=== PATIENT | male | born 1940 | race Caucasian/White ===

== ENCOUNTER 2021-11-12 14:35 | Inpatient (IN) | payer MEDICARE ==
[2021-11-12] MEDS ORDERED: Ondansetron ODT 4 MG TAB PO PRN (17:22)
[2021-11-12] MEDS ORDERED: Dextrose 50% Abboject 50 ML SYRINGE SLOW IVP PRN (17:22)
[2021-11-12] MEDS ORDERED: Acetaminophen 325 MG TAB PO PRN (17:22)
[2021-11-12] MEDS ORDERED: Albuterol Sulfate 2.5 mg/3 ml Neb NEB PRN (17:37)
[2021-11-12] MEDS: Acetaminophen/Codeine 30-300mg Tablet PO SCH (18:04)
[2021-11-12] MEDS: HumaLOG 300 UNITS/3 ML VIAL SC PRN ×2 (18:05→20:37)
[2021-11-12] MEDS: Famotidine 20 MG TAB PO SCH (20:38)
[2021-11-12] MEDS: Aspirin 81 mg Enteric Coated Tablet PO SCH (20:38)
[2021-11-12] MEDS: Metoprolol Tartrate 25 MG TAB PO SCH (20:38)
[2021-11-12] MEDS: Senokot S 8.6-50 MG TAB PO SCH (20:38)
[2021-11-12] MEDS ORDERED: Atorvastatin Calcium 10 MG TAB PO SCH (21:00)
[2021-11-13] MEDS: Acetaminophen/Codeine 30-300mg Tablet PO SCH ×4 (00:32→17:54)
[2021-11-13] MEDS: Mometasone/Formoterol 200/5 60 PUFF INH SCH (05:28)
[2021-11-13] MEDS: HumaLOG 300 UNITS/3 ML VIAL SC PRN ×4 (05:30→20:56)
[2021-11-13 06:15] LABS: #Eosinphils 0.1 thou/uL (0.0-0.7); #Lymphocytes 1.7 thou/uL (1.20-3.40); #Monocytes 0.7 thou/uL (0.11-0.59); #Neutrophils 3.9 thou/uL (1.40-6.50); %Basophils 0.8 % (0.0-1.0); %Eosinophils 1.1 % (0.0-10.0); %Lymphocytes 26.1 % (21.0-51.0); %Monocytes 10.7 % (0.0-10.0); %Neutrophils 61.3 % (42.0-75.0); Mean Corpuscular HGB CONC 31.1 g/dL (32.0-36.0); Mean Corpuscular Hemoglobin 30.4 pg (27.0-31.0); Mean Corpuscular Volume 97.7 fL (78.0-98.0); Mean Platelet Volume 8.6 fL (7.4-10.4); Platelet Count 143 thou/uL (130-400); RBC Distribution Width 13.3 % (11.5-14.5); White Blood Cell (WBC) Count 6.3 thou/uL (4.8-10.8)
[2021-11-13 06:25] LABS: ALT (SGPT) 12 U/L (8-55); AST (SGOT) 20 U/L (5-34); Albumin 3.1 g/dL (3.4-4.8); Alkaline Phosphatase 65 U/L (40-110); Anion Gap 16 mmol/L (10-20); BUN (Urea Nitrogen) 46 mg/dL (8.4-25.7); Bilirubin, Total 0.6 mg/dL (0.2-1.2); Calc. Creatinine Clearance 45 mL/min (70-130); Calcium 8.8 mg/dL (7.8-10.44); Carbon Dioxide 23 mmol/L (23-31); Chloride 106 mmol/L (98-107); Glucose 222 mg/dL (83-110); Potassium 4.7 mmol/L (3.5-5.1); Protein, Total 6.1 g/dL (5.8-8.1); Sodium 140 mmol/L (136-145)
[2021-11-13] MEDS: Aspirin 81 mg Enteric Coated Tablet PO SCH ×2 (08:42→20:56)
[2021-11-13] MEDS: Metoprolol Tartrate 25 MG TAB PO SCH ×2 (08:42→20:56)
[2021-11-13] MEDS: Atorvastatin Calcium 10 MG TAB PO SCH (08:43)
[2021-11-13] MEDS: Polyethylene Glycol 3350 17 GM Packet PO SCH (08:43)
[2021-11-13] MEDS: Tamsulosin HCl 0.4 MG CAP PO SCH (08:43)
[2021-11-13] MEDS: Lisinopril 5 MG TAB PO SCH (08:44)
[2021-11-13] MEDS: Finasteride 5 MG TAB PO SCH (08:44)
[2021-11-13] MEDS: Lantus 1000 UNITS/10 ML VIAL SC SCH (08:45)
[2021-11-13] MEDS: Senokot S 8.6-50 MG TAB PO SCH ×2 (08:47→20:56)
[2021-11-13] MEDS: Furosemide 40 MG TAB PO SCH (08:47)
[2021-11-13] MEDS: metFORMIN 500 MG TAB PO SCH (08:51)
[2021-11-13] MEDS ORDERED: metFORMIN 500 MG TAB PO SCH (09:00)
[2021-11-13] MEDS ORDERED: [UNRECOGNIZED DRUG - OTHER] SQ SCH (09:00)
[2021-11-13] MEDS: Famotidine 20 MG TAB PO SCH (20:56)
[2021-11-14] MEDS: Acetaminophen/Codeine 30-300mg Tablet PO SCH ×4 (00:04→17:04)
[2021-11-14] MEDS: HumaLOG 300 UNITS/3 ML VIAL SC PRN ×3 (05:49→17:05)
[2021-11-14] MEDS: Mometasone/Formoterol 200/5 60 PUFF INH SCH ×2 (05:51→05:56)
[2021-11-14] MEDS: Tamsulosin HCl 0.4 MG CAP PO SCH (09:19)
[2021-11-14] MEDS: metFORMIN 500 MG TAB PO SCH (09:19)
[2021-11-14] MEDS: Polyethylene Glycol 3350 17 GM Packet PO SCH (09:19)
[2021-11-14] MEDS: Senokot S 8.6-50 MG TAB PO SCH ×2 (09:19→20:27)
[2021-11-14] MEDS: Aspirin 81 mg Enteric Coated Tablet PO SCH ×2 (09:19→20:27)
[2021-11-14] MEDS: Furosemide 40 MG TAB PO SCH (09:20)
[2021-11-14] MEDS: Metoprolol Tartrate 25 MG TAB PO SCH ×2 (09:20→20:26)
[2021-11-14] MEDS: Lisinopril 5 MG TAB PO SCH (09:21)
[2021-11-14] MEDS: Finasteride 5 MG TAB PO SCH (09:21)
[2021-11-14] MEDS: Atorvastatin Calcium 10 MG TAB PO SCH (09:21)
[2021-11-14] MEDS: Lantus 1000 UNITS/10 ML VIAL SC SCH (09:25)
[2021-11-14] MEDS ORDERED: Ondansetron ODT 4 MG TAB SL PRN (10:15)
[2021-11-14] MEDS: Famotidine 20 MG TAB PO SCH (20:27)
[2021-11-15] MEDS: Acetaminophen/Codeine 30-300mg Tablet PO SCH ×4 (00:09→17:09)
[2021-11-15] MEDS ORDERED: Mometasone/Formoterol 200/5 60 PUFF INH SCH (07:00)
[2021-11-15] MEDS: Polyethylene Glycol 3350 17 GM Packet PO SCH (08:15)
[2021-11-15] MEDS: Lisinopril 5 MG TAB PO SCH (08:15)
[2021-11-15] MEDS: Furosemide 40 MG TAB PO SCH (08:16)
[2021-11-15] MEDS: Tamsulosin HCl 0.4 MG CAP PO SCH (08:16)
[2021-11-15] MEDS: Metoprolol Tartrate 25 MG TAB PO SCH ×2 (08:17→20:12)
[2021-11-15] MEDS: Aspirin 81 mg Enteric Coated Tablet PO SCH ×2 (08:19→20:12)
[2021-11-15] MEDS: Atorvastatin Calcium 10 MG TAB PO SCH (08:19)
[2021-11-15] MEDS: metFORMIN 500 MG TAB PO SCH (08:19)
[2021-11-15] MEDS: Lantus 1000 UNITS/10 ML VIAL SC SCH (08:20)
[2021-11-15] MEDS: Senokot S 8.6-50 MG TAB PO SCH ×2 (08:21→20:13)
[2021-11-15] MEDS: Finasteride 5 MG TAB PO SCH (08:31)
[2021-11-15] MEDS: Mometasone/Formoterol 200/5 60 PUFF INH SCH ×2 (08:31→08:33)
[2021-11-15] MEDS: HumaLOG 300 UNITS/3 ML VIAL SC PRN ×2 (12:06→17:11)
[2021-11-15] MEDS: Milk Of Magnesia 30 ML UDCUP PO PRN (16:23)
[2021-11-15] MEDS: Famotidine 20 MG TAB PO SCH (20:13)
[2021-11-16] MEDS: Acetaminophen/Codeine 30-300mg Tablet PO SCH ×4 (00:10→17:56)
[2021-11-16] MEDS: Tamsulosin HCl 0.4 MG CAP PO SCH (09:42)
[2021-11-16] MEDS: Aspirin 81 mg Enteric Coated Tablet PO SCH ×2 (09:42→21:08)
[2021-11-16] MEDS: Lisinopril 5 MG TAB PO SCH (09:42)
[2021-11-16] MEDS: Polyethylene Glycol 3350 17 GM Packet PO SCH (09:42)
[2021-11-16] MEDS: Milk Of Magnesia 30 ML UDCUP PO PRN (09:42)
[2021-11-16] MEDS: Metoprolol Tartrate 25 MG TAB PO SCH ×2 (09:43→21:06)
[2021-11-16] MEDS: metFORMIN 500 MG TAB PO SCH (09:44)
[2021-11-16] MEDS: Finasteride 5 MG TAB PO SCH (09:44)
[2021-11-16] MEDS: Furosemide 40 MG TAB PO SCH (09:44)
[2021-11-16] MEDS: Atorvastatin Calcium 10 MG TAB PO SCH (09:44)
[2021-11-16] MEDS: Mometasone/Formoterol 200/5 60 PUFF INH SCH (09:45)
[2021-11-16] MEDS: Senokot S 8.6-50 MG TAB PO SCH ×2 (09:47→21:09)
[2021-11-16] MEDS: Lantus 1000 UNITS/10 ML VIAL SC SCH (09:49)
[2021-11-16] MEDS: HumaLOG 300 UNITS/3 ML VIAL SC PRN (12:44)
[2021-11-16] MEDS: Famotidine 20 MG TAB PO SCH (21:08)
[2021-11-17] MEDS: Acetaminophen/Codeine 30-300mg Tablet PO SCH ×4 (00:10→17:29)
[2021-11-17] MEDS: Cyclobenzaprine 10 MG TAB PO PRN ×2 (01:46→14:28)
[2021-11-17] MEDS: Polyethylene Glycol 3350 17 GM Packet PO SCH (08:29)
[2021-11-17] MEDS: Furosemide 40 MG TAB PO SCH (08:29)
[2021-11-17] MEDS: Tamsulosin HCl 0.4 MG CAP PO SCH (08:30)
[2021-11-17] MEDS: Senokot S 8.6-50 MG TAB PO SCH ×2 (08:30→20:58)
[2021-11-17] MEDS: Finasteride 5 MG TAB PO SCH (08:31)
[2021-11-17] MEDS: Lisinopril 5 MG TAB PO SCH (08:31)
[2021-11-17] MEDS: metFORMIN 500 MG TAB PO SCH (08:31)
[2021-11-17] MEDS: Atorvastatin Calcium 10 MG TAB PO SCH (08:32)
[2021-11-17] MEDS: Metoprolol Tartrate 25 MG TAB PO SCH ×2 (08:32→20:58)
[2021-11-17] MEDS: Aspirin 81 mg Enteric Coated Tablet PO SCH ×2 (08:32→20:58)
[2021-11-17] MEDS: Lantus 1000 UNITS/10 ML VIAL SC SCH (08:33)
[2021-11-17] MEDS: Mometasone/Formoterol 200/5 60 PUFF INH SCH (08:34)
[2021-11-17] MEDS: HumaLOG 300 UNITS/3 ML VIAL SC PRN (12:01)
[2021-11-17] MEDS: Famotidine 20 MG TAB PO SCH (20:58)
[2021-11-18 00:03] LABS: SARS-CoV-2 PCR by NAA Not Detected (NotDetected)
[2021-11-18] MEDS: Acetaminophen/Codeine 30-300mg Tablet PO SCH ×5 (00:14→23:18)
[2021-11-18] MEDS: Lisinopril 5 MG TAB PO SCH (08:51)
[2021-11-18] MEDS: Tamsulosin HCl 0.4 MG CAP PO SCH (08:51)
[2021-11-18] MEDS: Polyethylene Glycol 3350 17 GM Packet PO SCH (08:51)
[2021-11-18] MEDS: Lantus 1000 UNITS/10 ML VIAL SC SCH (08:51)
[2021-11-18] MEDS: metFORMIN 500 MG TAB PO SCH (08:52)
[2021-11-18] MEDS: Cyclobenzaprine 10 MG TAB PO PRN ×2 (08:52→14:34)
[2021-11-18] MEDS: Finasteride 5 MG TAB PO SCH (08:52)
[2021-11-18] MEDS: Aspirin 81 mg Enteric Coated Tablet PO SCH ×2 (08:52→20:36)
[2021-11-18] MEDS: Atorvastatin Calcium 10 MG TAB PO SCH (08:54)
[2021-11-18] MEDS: Metoprolol Tartrate 25 MG TAB PO SCH ×2 (08:54→20:36)
[2021-11-18] MEDS: Furosemide 40 MG TAB PO SCH (08:54)
[2021-11-18] MEDS: Senokot S 8.6-50 MG TAB PO SCH ×2 (08:54→20:36)
[2021-11-18] MEDS: Mometasone/Formoterol 200/5 60 PUFF INH SCH (08:55)
[2021-11-18] MEDS: HumaLOG 300 UNITS/3 ML VIAL SC PRN (12:02)
[2021-11-18] MEDS: Famotidine 20 MG TAB PO SCH (20:36)
[2021-11-19] MEDS: Acetaminophen/Codeine 30-300mg Tablet PO SCH ×4 (05:39→23:27)
[2021-11-19] MEDS: Lantus 1000 UNITS/10 ML VIAL SC SCH (09:04)
[2021-11-19] MEDS: Tamsulosin HCl 0.4 MG CAP PO SCH (09:05)
[2021-11-19] MEDS: Lisinopril 5 MG TAB PO SCH (09:05)
[2021-11-19] MEDS: metFORMIN 500 MG TAB PO SCH (09:06)
[2021-11-19] MEDS: Senokot S 8.6-50 MG TAB PO SCH ×2 (09:06→20:35)
[2021-11-19] MEDS: Finasteride 5 MG TAB PO SCH (09:06)
[2021-11-19] MEDS: Aspirin 81 mg Enteric Coated Tablet PO SCH ×2 (09:06→20:36)
[2021-11-19] MEDS: Polyethylene Glycol 3350 17 GM Packet PO SCH (09:06)
[2021-11-19] MEDS: Metoprolol Tartrate 25 MG TAB PO SCH ×2 (09:07→20:36)
[2021-11-19] MEDS: Atorvastatin Calcium 10 MG TAB PO SCH (09:07)
[2021-11-19] MEDS: Furosemide 40 MG TAB PO SCH (09:08)
[2021-11-19] MEDS: Mometasone/Formoterol 200/5 60 PUFF INH SCH (09:08)
[2021-11-19] MEDS: Cyclobenzaprine 10 MG TAB PO PRN ×2 (09:13→20:36)
[2021-11-19] MEDS: HumaLOG 300 UNITS/3 ML VIAL SC PRN (11:57)
[2021-11-19] MEDS: Famotidine 20 MG TAB PO SCH (20:36)
[2021-11-20] MEDS: Acetaminophen/Codeine 30-300mg Tablet PO SCH ×4 (05:40→23:47)
[2021-11-20] MEDS: Polyethylene Glycol 3350 17 GM Packet PO SCH ×2 (08:32→08:44)
[2021-11-20] MEDS: Atorvastatin Calcium 10 MG TAB PO SCH (08:33)
[2021-11-20] MEDS: Furosemide 40 MG TAB PO SCH (08:33)
[2021-11-20] MEDS: Lisinopril 5 MG TAB PO SCH (08:33)
[2021-11-20] MEDS: Finasteride 5 MG TAB PO SCH (08:33)
[2021-11-20] MEDS: Metoprolol Tartrate 25 MG TAB PO SCH ×2 (08:34→20:06)
[2021-11-20] MEDS: Aspirin 81 mg Enteric Coated Tablet PO SCH ×2 (08:34→20:06)
[2021-11-20] MEDS: metFORMIN 500 MG TAB PO SCH (08:34)
[2021-11-20] MEDS: Mometasone/Formoterol 200/5 60 PUFF INH SCH ×2 (08:38→08:44)
[2021-11-20] MEDS: Tamsulosin HCl 0.4 MG CAP PO SCH (08:39)
[2021-11-20] MEDS: Senokot S 8.6-50 MG TAB PO SCH ×2 (08:40→20:06)
[2021-11-20] MEDS: Lantus 1000 UNITS/10 ML VIAL SC SCH (08:41)
[2021-11-20] MEDS: Famotidine 20 MG TAB PO SCH (20:06)
[2021-11-21] MEDS: Acetaminophen/Codeine 30-300mg Tablet PO SCH (05:31)
[2021-11-21] MEDS: Aspirin 81 mg Enteric Coated Tablet PO SCH ×2 (09:36→20:24)
[2021-11-21] MEDS: metFORMIN 500 MG TAB PO SCH (09:36)
[2021-11-21] MEDS: Tamsulosin HCl 0.4 MG CAP PO SCH (09:37)
[2021-11-21] MEDS: Furosemide 40 MG TAB PO SCH (09:37)
[2021-11-21] MEDS: Atorvastatin Calcium 10 MG TAB PO SCH (09:37)
[2021-11-21] MEDS: Senokot S 8.6-50 MG TAB PO SCH ×2 (09:37→20:25)
[2021-11-21] MEDS: Finasteride 5 MG TAB PO SCH (09:38)
[2021-11-21] MEDS: Lantus 1000 UNITS/10 ML VIAL SC SCH (09:39)
[2021-11-21] MEDS: Metoprolol Tartrate 25 MG TAB PO SCH ×2 (09:40→20:24)
[2021-11-21] MEDS: Lisinopril 5 MG TAB PO SCH (09:40)
[2021-11-21] MEDS: Mometasone/Formoterol 200/5 60 PUFF INH SCH (09:45)
[2021-11-21] MEDS: Polyethylene Glycol 3350 17 GM Packet PO SCH (09:46)
[2021-11-21] MEDS ORDERED: Acetaminophen/Codeine 30-300mg Tablet PO PRN ×2 (10:28→10:31)
[2021-11-21 11:15] LABS: #Basophils 0.1 thou/uL (0.0-0.2); #Eosinphils 0.1 thou/uL (0.0-0.7); #Lymphocytes 1.7 thou/uL (1.20-3.40); #Monocytes 0.6 thou/uL (0.11-0.59); #Neutrophils 4.9 thou/uL (1.40-6.50); %Basophils 0.8 % (0.0-1.0); %Eosinophils 1.8 % (0.0-10.0); %Lymphocytes 22.9 % (21.0-51.0); %Monocytes 7.6 % (0.0-10.0); %Neutrophils 66.9 % (42.0-75.0); Hemoglobin 10.2 g/dL (14.0-18.0); Mean Corpuscular HGB CONC 30.8 g/dL (32.0-36.0); Mean Corpuscular Volume 97.3 fL (78.0-98.0); Mean Platelet Volume 7.4 fL (7.4-10.4); Platelet Count 259 thou/uL (130-400); RBC Distribution Width 13.1 % (11.5-14.5); Red Blood Cell (RBC) Count 3.41 mill/uL (4.70-6.10); White Blood Cell (WBC) Count 7.4 thou/uL (4.8-10.8)
[2021-11-21] MEDS: HumaLOG 300 UNITS/3 ML VIAL SC PRN ×2 (11:18→20:29)
[2021-11-21 11:25] LABS: Anion Gap 18 mmol/L (10-20); BUN (Urea Nitrogen) 49 mg/dL (8.4-25.7); Calc. Creatinine Clearance 39 mL/min (70-130); Carbon Dioxide 23 mmol/L (23-31); Chloride 103 mmol/L (98-107); Glucose 171 mg/dL (83-110); Potassium 5.5 mmol/L (3.5-5.1); Sodium 138 mmol/L (136-145)
[2021-11-21] MEDS: Cyclobenzaprine 10 MG TAB PO PRN (16:24)
[2021-11-21] MEDS: Famotidine 20 MG TAB PO SCH (20:24)
[2021-11-22] MEDS: HumaLOG 300 UNITS/3 ML VIAL SC PRN (06:03)
[2021-11-22 08:09] VITALS: BP 157/71; TEMP 97.7
[2021-11-22] MEDS: metFORMIN 500 MG TAB PO SCH (08:48)
[2021-11-22] MEDS: Furosemide 40 MG TAB PO SCH (08:48)
[2021-11-22] MEDS: Aspirin 81 mg Enteric Coated Tablet PO SCH (08:48)
[2021-11-22] MEDS: Finasteride 5 MG TAB PO SCH (08:48)
[2021-11-22] MEDS: Atorvastatin Calcium 10 MG TAB PO SCH (08:49)
[2021-11-22] MEDS: Lisinopril 5 MG TAB PO SCH (08:49)
[2021-11-22] MEDS: Senokot S 8.6-50 MG TAB PO SCH (08:49)
[2021-11-22] MEDS: Metoprolol Tartrate 25 MG TAB PO SCH (08:51)
[2021-11-22] MEDS: Lantus 1000 UNITS/10 ML VIAL SC SCH (08:54)
[2021-11-22] MEDS: Tamsulosin HCl 0.4 MG CAP PO SCH (08:54)
== END 2021-11-22 11:30 | disposition home or self-care (01) | DRG 561 ==
LOC: NAV ACUTE 16:10
PROVIDERS: ADMIT Family Medicine; ATTEND Family Medicine
DX: S72.002D Fracture of unspecified part of neck of left femur, subsequent encounter for closed fracture with routine healing (principal); W19.XXXD Unspecified fall, subsequent encounter; E78.5 Hyperlipidemia, unspecified; I48.91 Unspecified atrial fibrillation; E11.9 Type 2 diabetes mellitus without complications; N18.9 Chronic kidney disease, unspecified; I12.9 Hypertensive chronic kidney disease with stage 1 through stage 4 chronic kidney disease, or unspecified chronic kidney disease; Z96.642 Presence of left artificial hip joint; I25.10 Atherosclerotic heart disease of native coronary artery without angina pectoris; Z20.822 Contact with and (suspected) exposure to COVID-19; Z95.0 Presence of cardiac pacemaker; Z98.890 Other specified postprocedural states
CPT/HCPCS: 36416; 80048; 80053; 85025; 36415-59; J1815; U0003; U0005